=== PATIENT | female | born 1990 | race Caucasian/White ===

== ENCOUNTER 2017-02-22 16:24 | Outpatient (CLI) | payer MEDICAID, OTHER ==
[2017-02-23 11:49] LABS: BASOPHILS % (AUTO) 0.4 %; EOSINOPHILS # (AUTO) 0.1 10^3/uL (0.0-0.7); EOSINOPHILS % (AUTO) 1.2 %; HCT - HEMATOCRIT 39.2 % (37.0-47.0); LYMPHOCYTES # (AUTO) 3.1 10^3/uL (1.5-3.5); LYMPHOCYTES % (AUTO) 35.7 %; MEAN CORPUSCULAR HEMOGLOBIN 31.5 pg (27.0-31.0); MEAN CORPUSCULAR HGB CONC 33.2 g/dL (32.0-36.0); MEAN CORPUSCULAR VOLUME 95.1 fL (81.0-99.0); MEAN PLATELET VOLUME 8.3 fL (7.9-10.8); MONOCYTES # (AUTO) 0.5 10^3/uL (0.0-1.0); MONOCYTES % (AUTO) 5.8 %; NEUTROPHILS # (AUTO) 4.9 10^3/uL (1.5-6.6); NEUTROPHILS % (AUTO) 56.9 %; NUCLEATED RED BLOOD CELLS AUTO 0.1 /100WBC; RED BLOOD COUNT 4.13 10^6/uL (4.20-5.40); RED CELL DISTRIBUTION WIDTH 12.4 % (12.0-15.0); UNCORRECTED WHITE BLOOD COUNT 8.6 x10^3/uL; WHITE BLOOD COUNT 8.6 x10^3/uL (4.8-10.8)
[2017-02-23 12:42] LABS: CALCIUM 8.9 mg/dL (8.5-10.3); CREATININE 0.9 mg/dL (0.4-1.0); POTASSIUM 3.6 mmol/L (3.5-5.0)
[2017-02-25 22:31] LABS: TEST RESULT REPORT (())
== END 2017-02-22 16:25 | disposition home or self-care (01) ==
LOC: LAB.S 16:24
PROVIDERS: ATTEND Nurse Practitioner Family
DX: Z02.0 Encounter for examination for admission to educational institution (principal); Z13.1 Encounter for screening for diabetes mellitus; Z13.0 Encounter for screening for diseases of the blood and blood-forming organs and certain disorders involving the immune mechanism
CPT/HCPCS: 36415; 80048; 81599; 85025; 86317; 86735; 86762; 86765; 86787

== ENCOUNTER 2020-02-02 16:44 | Outpatient (CLI) | payer BC | END 2020-02-02 23:59 | disposition short-term general hospital (02) | LOC: EMS 16:44 | PROVIDERS: ATTEND Surgery | DX: S89.91XA Unspecified injury of right lower leg, initial encounter (principal); V80.010A Animal-rider injured by fall from or being thrown from horse in noncollision accident, initial encounter; Y93.52 Activity, horseback riding; Y92.838 Other recreation area as the place of occurrence of the external cause | CPT/HCPCS: A0425; A0433 ==

== ENCOUNTER 2022-02-27 08:00 | Outpatient (CLI) | payer BC, MEDICAID ==
[2022-02-27 08:08] LABS: BILIRUBIN,URINE NEGATIVE (NEGATIVE); GLUCOSE, URINE (UA) NEGATIVE (NEGATIVE); KETONES,URINE (UA) NEGATIVE (NEGATIVE); LEUKOCYTE ESTERASE, URINE NEGATIVE (NEGATIVE); NITRITE,URINE NEGATIVE (NEGATIVE); OCCULT BLOOD,URINE NEGATIVE (NEGATIVE); PROTEIN,URINE NEGATIVE (NEGATIVE); UROBILINOGEN,URINE 0.2 (NORMAL) E.U./dL (NORMAL)
[2022-02-27 08:37] LABS: CLARITY,URINE CLEAR (CLEAR)
[2022-02-27 08:40] LABS: BACTERIA,URINE None Seen /HPF (None Seen); RBC,URINE None Seen /HPF (0-5); SQUAMOUS EPITHELIAL CELL,UR NONE SEEN (<= Few); WBC,URINE 0-3 /HPF (0-5)
== END 2022-02-27 23:59 | disposition home or self-care (01) ==
LOC: LAB.WC 08:00
PROVIDERS: ATTEND Obstetrics & Gynecology
DX: Z32.01 Encounter for pregnancy test, result positive (principal)
CPT/HCPCS: 81001; 87086

== ENCOUNTER 2022-03-06 08:00 | Outpatient (CLI) | payer MEDICAID ==
[2022-03-07 00:11] LABS: CHLAMYDIA TRACHOMATIS DNA NEGATIVE (NEGATIVE); NEISSERIA GONORRHOEAE DNA NEGATIVE (NEGATIVE); TRICHOMONAS VAGINALIS DNA NEGATIVE (NEGATIVE)
== END 2022-03-06 23:59 | disposition home or self-care (01) ==
LOC: LAB 08:00
PROVIDERS: ATTEND Obstetrics & Gynecology
DX: Z11.3 Encounter for screening for infections with a predominantly sexual mode of transmission (principal)
CPT/HCPCS: 87491; 87591; 87661

== ENCOUNTER 2022-03-06 10:59 | Outpatient (CLI) | payer MEDICAID ==
[2022-03-06 11:14] LABS: BASOPHILS # (AUTO) 0.1 10^3/uL (0.0-0.1); BASOPHILS % (AUTO) 0.7 %; EOSINOPHILS # (AUTO) 0.1 10^3/uL (0.0-0.7); HCT - HEMATOCRIT 39.5 % (37.0-47.0); LYMPHOCYTES # (AUTO) 1.7 10^3/uL (1.5-3.5); LYMPHOCYTES % (AUTO) 23.2 %; MEAN CORPUSCULAR HEMOGLOBIN 32.4 pg (27.0-31.0); MEAN CORPUSCULAR HGB CONC 35.4 g/dL (32.0-36.0); MEAN CORPUSCULAR VOLUME 91.4 fL (81.0-99.0); MEAN PLATELET VOLUME 9.6 fL (7.9-10.8); MONOCYTES # (AUTO) 0.5 10^3/uL (0.0-1.0); MONOCYTES % (AUTO) 7.4 %; NEUTROPHILS # (AUTO) 4.9 10^3/uL (1.5-6.6); NEUTROPHILS % (AUTO) 67.4 %; PLT - PLATELET COUNT 182 10^3/uL (130-450); RED BLOOD COUNT 4.32 10^6/uL (4.20-5.40); WHITE BLOOD COUNT 7.3 x10^3/uL (4.8-10.8)
[2022-03-07 05:11] LABS: HBsAG SCREEN Negative (Negative); HCV AB <0.1 s/co ratio (0.0-0.9); HIV SCREEN 4TH GENERATION Non Reactive (Non Reactive)
[2022-03-07 06:11] LABS: RPR Non Reactive (Non Reactive)
[2022-03-07 08:09] LABS: VARICELLA-ZOSTER AB IGG <135 index (Immune >165)
== END 2022-03-06 11:00 | disposition home or self-care (01) ==
LOC: LAB 10:59
PROVIDERS: ATTEND Obstetrics & Gynecology
DX: Z36.89 Encounter for other specified antenatal screening (principal)
CPT/HCPCS: 36415; 85025; 86592; 86762; 86787; 86803; 86850; 86900; 86901; 87340; 87389

== ENCOUNTER 2022-06-02 15:46 | Outpatient (CLI) | payer MEDICAID ==
--- NOTE | 2022-06-02 17:54 | Ultrasound Report ---
PROCEDURE: OB Detailed Eval INDICATIONS: SUPERVISION OF OUTSIDE/PRIOR DATING DATA: Last menstrual period (LMP): 01/16/2022. LMP-based estimated date of delivery (TAIWO): 10/23/2022. First dating scan (date and location): 03/04/2022, [facility]. Estimated date of delivery (TAIWO) from first dating scan: 10/22/2022. TECHNIQUE: Real-time scanning was performed of the fetus, with image documentation and biometric measurements. COMPARISON: OB ultrasound dated 03/04/2022 FINDINGS: General: A single living intrauterine gestation is present. Presentation: Vertex Placenta: Placental position is fundal. There is a marginal placental previa which is 6 mm from the cervical os. Amniotic fluid index: 13.7 cm, 4.6% for gestational age. heart rate: 148 beats per minute. Maternal cervical canal: I.1 cm long; normal length is 2.5 cm or more. biometrics: Biparietal diameter: 5.32 cm, 22 weeks, 1 day Head circumference: 19.3 cm, 21 weeks, 4 days Abdominal circumference: 15.9 cm, 21 weeks, 0 days Femur length: Tree 0.37 cm, 20 weeks, 4 days Estimated gestational age from initial scan: 19 weeks, 5 days Composite gestational age from present scan: 21 weeks, 0 days Estimated weight and percentile: 388 g, 97% Measurement variability in biometric dating: +/- 10 days from 12-20 weeks gestation, +/- 2 weeks from 20-30 weeks gestation, +/- 3 weeks at 30 weeks gestation or later. Anatomic survey: Neuro: Ventricles are normal at less than 10 mm. Cisterna magna is normal at 3-11 mm. Cerebellum i s normal in size and morphology. Nuchal skin fold: Normal at less than 6 mm between 14 and 20 weeks gestational age. Face: Nose and lips, facial profile are normal. Spine: No evidence for spina bifida. Heart: 4-chambered heart is present, with normal ventricular outflow tracts. Diaphragm: Diaphragm is intact. Stomach: Left-sided stomach is present. Kidneys: No hydronephrosis. Normal is less than 5 mm in 2nd trimester, less than 7 mm in 3rd trimester. Cord: 3 vessel cord has orthotopic insertion. Bladder: Normal in size. Extremities: All 4 extremities are visualized. IMPRESSION: 1. Marginal placenta previa. Continued sonographic surveillance recommended. 2. Estimated weight percentile of 97%. Developing macrosomia cannot be excluded. 3. Profile was not visualized. No other sonographic anatomic abnormalities. Interval repeat gabi dy recommended to evaluate for profile. Reviewed by: Josette López MD on 06/02/2022 5:52 PM PDT Approved by: Josette López MD on 06/02/2022 5:52 PM PDT Station ID: [id number]
== END 2022-06-02 15:47 | disposition home or self-care (01) ==
LOC: DI 15:46
PROVIDERS: ATTEND Obstetrics & Gynecology
DX: O44.22 Partial placenta previa NOS or without hemorrhage, second trimester (principal); Z36.89 Encounter for other specified antenatal screening; Z3A.21 21 weeks gestation of pregnancy

== ENCOUNTER 2022-06-16 10:00 | Outpatient (CLI) | payer MEDICAID ==
--- NOTE | 2022-06-16 15:55 | Ultrasound Report ---
PROCEDURE: OB F/U or Repeat INDICATIONS: SUPERVISION OF OUTSIDE/PRIOR DATING DATA: Last menstrual period (LMP): 01/16/2022. LMP-based estimated date of delivery (TAIWO): 10/23/2022. First dating scan (date and location): 03/04/2022. Estimated date of delivery (TAIWO) from first dating scan: 10/22/2022. The below data below was generated using the ultrasound generated TAIWO of 10/22/2022 TECHNIQUE: Real-time scanning was performed of the fetus, with image documentation and biometric measurements. Endovaginal scanning: Not performed COMPARISON: None. FINDINGS: General: A single living intrauterine gestation is present. Presentation: Vertex Placenta: Placental position is fundal, without previa. Cord insertion is normal. Amniotic fluid index: Posterior cm, normal for gestational age. heart rate: 143 beats per minute. facial profile: Normal. Maternal cervical canal: 5 cm long; normal length is 2.5 cm or more. IMPRESSION: Single living intrauterine gestation with normal LESLI and normal orthotopic cord insertion. facial profile appears normal. Reviewed by: Ceferino Grace MD on 06/16/2022 3:54 PM PDT Approved by: Ceferino Grace MD on 06/16/2022 3:54 PM PDT Station ID: [id number]
== END 2022-06-16 10:01 | disposition home or self-care (01) ==
LOC: DI 10:00
PROVIDERS: ATTEND Obstetrics & Gynecology
DX: O44.12 Complete placenta previa with hemorrhage, second trimester (principal); Z3A.00 Weeks of gestation of pregnancy not specified

== ENCOUNTER 2022-07-16 14:04 | Outpatient (CLI) | payer MEDICAID ==
--- NOTE | 2022-07-16 18:37 | Ultrasound Report ---
PROCEDURE: OB F/U or Repeat INDICATIONS: Placenta previa OUTSIDE/PRIOR DATING DATA: Last menstrual period (LMP): 01/16/2022. LMP-based estimated date of delivery (TAIWO): 10/23/2022. First dating scan (date and location): 03/04/2022. Estimated date of delivery (TAIWO) from first dating scan: 10/22/2022. TECHNIQUE: Real-time scanning was performed of the fetus, with image documentation and biometric measurements. Endovaginal scanning: Not performed COMPARISON: None. FINDINGS: General: A single living intrauterine gestation is present. Presentation: Vertex Placenta: Placental position is fundal, without previa. Cord insertion is normal. Amniotic fluid index: 16.9 cm, normal for gestational age. heart rate: 137 beats per minute. facial profile: Normal. Maternal cervical canal: 5.3 cm long; normal length is 2.5 cm or more. BPD: 7.7 cm, 31 week 0 day HC: 27.8 cm, 30 week 3 day Before meals: 22.7 cm, 27 week 1 day FL: 5.0 cm, 26 week 6 day EGA by initial ultrasound: 26 week 0 day EGA by today's ultrasound: 28 week 3 day EFW: 1095 g, 94th percentile IMPRESSION: Single live intrauterine consistent with a 20 week 3 day gestation by current ultrasound No evidence of placenta previa. Reviewed by: Brando Dee MD on 07/16/2022 5:35 PM [place] Approved by: Brando Dee MD on 07/16/2022 5:35 PM [place] Station ID: [id number]
== END 2022-07-16 14:05 | disposition home or self-care (01) ==
LOC: DI 14:04
PROVIDERS: ATTEND Obstetrics & Gynecology
DX: O44.12 Complete placenta previa with hemorrhage, second trimester (principal); Z3A.20 20 weeks gestation of pregnancy

== ENCOUNTER 2022-07-24 15:49 | Outpatient (CLI) | payer MEDICAID | END 2022-07-24 15:50 | disposition home or self-care (01) | LOC: LAB 15:49 | PROVIDERS: ATTEND Obstetrics & Gynecology | DX: O09.92 Supervision of high risk pregnancy, unspecified, second trimester (principal); Z36.89 Encounter for other specified antenatal screening | CPT/HCPCS: 36415; 82950 ==

== ENCOUNTER 2022-09-09 18:36 | Outpatient (CLI) | payer MEDICAID ==
[2022-09-09 19:00] LABS: HCT - HEMATOCRIT 36.1 % (37.0-47.0); HGB - HEMOGLOBIN 12.1 g/dL (12.0-16.0); MEAN CORPUSCULAR HEMOGLOBIN 31.5 pg (27.0-31.0); MEAN CORPUSCULAR HGB CONC 33.5 g/dL (32.0-36.0); MEAN PLATELET VOLUME 9.5 fL (7.9-10.8); RED BLOOD COUNT 3.84 10^6/uL (4.20-5.40); RED CELL DISTRIBUTION WIDTH 11.8 % (12.0-15.0); WHITE BLOOD COUNT 14.2 x10^3/uL (4.8-10.8)
[2022-09-09 19:01] LABS: CREATININE,URINE 62.9 mg/dL; PROTEIN/CREATININE RATIO,URINE 0.1 (<=0.2)
[2022-09-09 19:02] LABS: ALBUMIN 3.5 g/dL (3.2-5.5); ALBUMIN/GLOBULIN RATIO 0.9 (1.0-2.2); BILIRUBIN,TOTAL 0.5 mg/dL (0.2-1.0); CALCIUM 8.9 mg/dL (8.5-10.3); CREATININE 0.7 mg/dL (0.4-1.0); POTASSIUM 3.5 mmol/L (3.5-5.0); TOTAL PROTEIN 7.5 g/dL (6.7-8.2)
== END 2022-09-09 18:37 | disposition home or self-care (01) ==
LOC: LAB 18:36
PROVIDERS: ATTEND Obstetrics & Gynecology
DX: R03.0 Elevated blood-pressure reading, without diagnosis of hypertension (principal)
CPT/HCPCS: 36415; 80053; 82570; 84156; 85027

== ENCOUNTER 2022-09-23 08:00 | Outpatient (CLI) | payer MEDICAID | END 2022-09-23 23:59 | disposition home or self-care (01) | LOC: LAB.WC 08:00 | PROVIDERS: ATTEND Obstetrics & Gynecology | DX: O09.93 Supervision of high risk pregnancy, unspecified, third trimester (principal) | CPT/HCPCS: 87797 ==

== ENCOUNTER 2022-09-23 09:54 | Outpatient (CLI) | payer MEDICAID ==
[2022-09-23 10:11] VITALS: BP 127/79
--- NOTE | 2022-09-23 11:43 | PROVIDER PROGRESS NOTE ---
- HPI Chief Complaint: Hypertension/PIH Current : Vital Signs Temperature 99.1 F 09/23/22 10:10 Heart Rate 91 09/23/22 10:10 Respiratory Rate 16 09/23/22 10:10 Blood Pressure 127/79 09/23/22 10:10 O2 Saturation 99 09/23/22 10:10 Temperature 99.1 F 09/23/22 10:19 Heart Rate 91 09/23/22 10:10 Respiratory Rate 16 09/23/22 10:10 Blood Pressure 127/79 09/23/22 10:10 O2 Saturation 99 09/23/22 10:10 If not protocol: Oxygen Flow, liters/minute - Exam Pelvic examination revealed 1 cm dilated cervix with the 0 effacement and -3 station and vertex presentation - Procedures OB Procedure Performed: NST Diagnosis/Indication for NST: Other NST Procedure: Reactive nonstress test - Plan Plan: I spoke to Dr. Noble Fair at [facility] in [place] and he agreed and accepted the transfer
--- NOTE | 2022-09-23 11:56 | DISCHARGE SUMMARY ---
"Discharge Summary Admit Date: 09/23/22 Discharge Date: 09/23/22 Discharging Provider: Primary Care Provider: Condition at Discharge: Stable - DIAGNOSES Admission Diagnoses: IUP 35+ PPROM PIH Discharge Diagnoses with Status of Each Condition: the same Condition on discharge: Stable - HPI History of Present Illness: This 32-year-old primigravida EDC October 23, 2022 was a sent from the clinic for nonstress test further -induced hypertension and prolonged rupture of membrane. Her nonstress test was reactive and her blood pressure become stable but she had a definite rupture of membrane since Wednesday. Because of a gestational age which is a less than 36 weeks with the prolonged rupture membrane we do not feel comfortable to take care however her delivery and aftercare therefore we decided to transfer to [facility]. - CONSULTS | PROCEDURES Consultations: Dr. Noble Fair - HOSPITAL COURSE Hospital Course: She remained stable and her vital signs normal - ALLERGIES Allergies/Adverse Reactions: Allergies Allergy/AdvReac Type Severity Reaction Status Date / Time No Known Drug Allergies Allergy Verified 09/23/22 10:35 - FOLLOW UP Follow Up: We will transfer her to the [facility] in [place]. She was given prophylactic antibiotics and betamethasone"
[2022-09-23] MEDS ORDERED: AMPICILLIN 2 GM in SODIUM CHLORIDE 0.9% MINIBAG 100 ML IV ONE (12:00)
--- NOTE | 2022-09-23 12:06 | Discharge Plan ---
Discharge Plan Problem Reviewed?: Yes Disposition: 02 Transfer Acute Care Hosp Condition: Stable Diet: Regular No Smoking: If you smoke, Please STOP! Call for help. Follow-up with: Will Akhtar MD [Primary Care Provider] - 6 Weeks (She will be transferred to the [facility] today and she will require to have 6 weeks follow-up checkup here)
--- NOTE | 2022-09-23 12:12 | PROCEDURE REPORT ---
- HPI Diagnosis/Indication for NST: Pre- Hypertension Vital Signs Temperature 99.1 F 09/23/22 10:10 Heart Rate 91 09/23/22 10:10 Respiratory Rate 16 09/23/22 10:10 Blood Pressure 127/79 09/23/22 10:10 O2 Saturation 99 09/23/22 10:10 Temperature 99.1 F 09/23/22 10:19 Heart Rate 91 09/23/22 10:10 Respiratory Rate 16 09/23/22 10:10 Blood Pressure 127/79 09/23/22 10:10 O2 Saturation 99 09/23/22 10:10 If not protocol: Oxygen Flow, liters/minute - NST Procedure Baseline\: 135 moderate beat to beat variability present acceleration absent deceleration cat: 1 FHT - Results and Plan Findings/Impression: Reactive Plan: Will be transferred to [place] due to gestational age and prolonged ROM
[2022-09-23] MEDS ORDERED: BETAMETHASONE 30 MG/5 ML VIAL IM ONE (12:15)
[2022-09-23] MEDS: SODIUM CHLORIDE FLUSH 0.9% 10 ML SYRINGE IVP SCH ×2 (12:27→12:40)
[2022-09-23 12:35] LABS: BASOPHILS # (AUTO) 0.1 10^3/uL (0.0-0.1); BASOPHILS % (AUTO) 0.6 %; EOSINOPHILS % (AUTO) 0.2 %; HCT - HEMATOCRIT 33.8 % (37.0-47.0); HGB - HEMOGLOBIN 11.4 g/dL (12.0-16.0); LYMPHOCYTES # (AUTO) 0.6 10^3/uL (1.5-3.5); LYMPHOCYTES % (AUTO) 7.2 %; MEAN CORPUSCULAR HEMOGLOBIN 31.1 pg (27.0-31.0); MEAN CORPUSCULAR HGB CONC 33.7 g/dL (32.0-36.0); MEAN CORPUSCULAR VOLUME 92.3 fL (81.0-99.0); MEAN PLATELET VOLUME 9.9 fL (7.9-10.8); MONOCYTES # (AUTO) 0.5 10^3/uL (0.0-1.0); MONOCYTES % (AUTO) 6.3 %; NEUTROPHILS # (AUTO) 7.1 10^3/uL (1.5-6.6); NEUTROPHILS % (AUTO) 85.2 %; PLT - PLATELET COUNT 147 10^3/uL (130-450); RED BLOOD COUNT 3.66 10^6/uL (4.20-5.40); RED CELL DISTRIBUTION WIDTH 11.8 % (12.0-15.0); WHITE BLOOD COUNT 8.4 x10^3/uL (4.8-10.8)
[2022-09-23 12:50] LABS: ALBUMIN 2.9 g/dL (3.2-5.5); ALBUMIN/GLOBULIN RATIO 0.8 (1.0-2.2); BILIRUBIN,TOTAL 0.5 mg/dL (0.2-1.0); CALCIUM 8.3 mg/dL (8.5-10.3); CREATININE 0.8 mg/dL (0.4-1.0); POTASSIUM 3.7 mmol/L (3.5-5.0); TOTAL PROTEIN 6.5 g/dL (6.7-8.2)
== END 2022-09-23 13:52 | disposition short-term general hospital (02) ==
LOC: WFO 09:54 → FBP 09:56 → WFO 13:52
PROVIDERS: ATTEND Obstetrics & Gynecology
DX: O13.3 Gestational [pregnancy-induced] hypertension without significant proteinuria, third trimester (principal); O42.913 Preterm premature rupture of membranes, unspecified as to length of time between rupture and onset of labor, third trimester; O09.93 Supervision of high risk pregnancy, unspecified, third trimester; Z3A.35 35 weeks gestation of pregnancy
CPT/HCPCS: 59025; 80053; 84112; 85025; 96365; 96372; 99215

== ENCOUNTER 2022-09-23 10:06 | Outpatient (CLI) | payer MEDICAID ==
[2022-09-23 10:26] LABS: RUPTURE OF MEMBRANES PLUS POSITIVE (NEGATIVE)
== END 2022-09-23 10:07 | disposition home or self-care (01) ==
LOC: LAB.WC 10:06
PROVIDERS: ATTEND Obstetrics & Gynecology
DX: O09.93 Supervision of high risk pregnancy, unspecified, third trimester (principal)
CPT/HCPCS: 84112

== ENCOUNTER 2024-01-13 08:00 | Outpatient (CLI) | payer MEDICAID ==
[2024-01-13 18:57] LABS: BILIRUBIN,URINE NEGATIVE (NEGATIVE); GLUCOSE, URINE (UA) NEGATIVE (NEGATIVE); KETONES,URINE (UA) NEGATIVE (NEGATIVE); LEUKOCYTE ESTERASE, URINE NEGATIVE (NEGATIVE); NITRITE,URINE NEGATIVE (NEGATIVE); OCCULT BLOOD,URINE NEGATIVE (NEGATIVE); PROTEIN,URINE NEGATIVE (NEGATIVE); UROBILINOGEN,URINE 0.2 (NORMAL) E.U./dL (NORMAL)
[2024-01-13 19:23] LABS: BACTERIA,URINE Moderate /HPF (None Seen); CLARITY,URINE CLEAR (CLEAR); RBC,URINE None Seen /HPF (0-5); SQUAMOUS EPITHELIAL CELL,UR MOD Squamous (<= Few)
== END 2024-01-13 23:59 | disposition home or self-care (01) ==
LOC: LAB.WC 08:00
PROVIDERS: ATTEND Nurse Practitioner
DX: Z34.90 Encounter for supervision of normal pregnancy, unspecified, unspecified trimester (principal)
CPT/HCPCS: 81001; 87086

== ENCOUNTER 2024-01-17 12:36 | Outpatient (CLI) | payer MEDICAID ==
[2024-01-17 15:07] LABS: BASOPHILS # (AUTO) 0.1 10^3/uL (0.0-0.1); BASOPHILS % (AUTO) 0.6 %; EOSINOPHILS # (AUTO) 0.1 10^3/uL (0.0-0.7); EOSINOPHILS % (AUTO) 0.9 %; HCT - HEMATOCRIT 39.9 % (37.0-47.0); HGB - HEMOGLOBIN 13.4 g/dL (12.0-16.0); LYMPHOCYTES # (AUTO) 2.4 10^3/uL (1.5-3.5); LYMPHOCYTES % (AUTO) 28.5 %; MEAN CORPUSCULAR HEMOGLOBIN 30.5 pg (27.0-31.0); MEAN CORPUSCULAR HGB CONC 33.6 g/dL (32.0-36.0); MEAN CORPUSCULAR VOLUME 90.9 fL (81.0-99.0); MEAN PLATELET VOLUME 10.1 fL (7.9-10.8); MONOCYTES # (AUTO) 0.5 10^3/uL (0.0-1.0); MONOCYTES % (AUTO) 5.3 %; NEUTROPHILS # (AUTO) 5.5 10^3/uL (1.5-6.6); NEUTROPHILS % (AUTO) 64.5 %; PLT - PLATELET COUNT 244 10^3/uL (130-450); RED BLOOD COUNT 4.39 10^6/uL (4.20-5.40); RED CELL DISTRIBUTION WIDTH 12.8 % (12.0-15.0); WHITE BLOOD COUNT 8.5 x10^3/uL (4.8-10.8)
[2024-01-18 06:15] LABS: HIV SCREEN 4TH GENERATION Non Reactive (Non Reactive)
[2024-01-18 08:19] LABS: HBsAG SCREEN Negative (Negative); RPR Non Reactive (Non Reactive)
[2024-01-18 12:10] LABS: VARICELLA-ZOSTER AB IGG <135 index (Immune >165)
[2024-01-19 00:08] LABS: HCV AB Non Reactive (Non Reactive)
== END 2024-01-17 12:37 | disposition home or self-care (01) ==
LOC: LAB.S 12:36
PROVIDERS: ATTEND Nurse Practitioner
DX: Z34.90 Encounter for supervision of normal pregnancy, unspecified, unspecified trimester (principal)
CPT/HCPCS: 36415; 85025; 86592; 86762; 86787; 86803; 86850; 86900; 86901; 87340; 87389

== ENCOUNTER 2024-01-25 19:34 | Outpatient (CLI) | payer MEDICAID ==
--- NOTE | 2024-01-26 01:07 | Ultrasound Report ---
PROCEDURE: OB 1st Trimester w/TV INDICATIONS: POSITIVE TEST OUTSIDE/PRIOR DATING DATA: Last menstrual period (LMP): 12/02/2023. LMP-based estimated date of delivery (TAIWO): 09/07/2024. First dating scan (date and location): 01/25/2024. Estimated date of delivery (TAIWO) from first dating scan: 09/08/2024. TECHNIQUE: Real-time scanning was performed of the fetus and maternal pelvic organs, with image documentation. Endovaginal scanning was also performed to better visualize the fetus and maternal ovaries. COMPARISON: None. FINDINGS: Intrauterine gestational sac present. Embryo: [place]-rump length 1.4 cm corresponds with a 7 week 4 day gestation Heart rate: 155 bpm. 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 Intrauterine noted in the right horn. Measurement variability in dating: +/- 4 weeks by LMP, +/- 7 days by mean sac diameter (use before 6 weeks gestation if crown-rump length not able to be measured), +/- 5 days by crown-rump length (6-12 weeks gestation). Maternal organs: Ovaries show right corpus luteum cyst IMPRESSION: Single live intrauterine consistent with 7 week 4 day gestation. Bicornuate or septate uterus. Gestational sac is in the right cornu Reviewed by: Brando Dee MD on 01/26/2024 12:05 AM RUFINO Approved by: Brando Dee MD on 01/26/2024 12:05 AM RUFINO Station ID: [id number]
== END 2024-01-25 19:35 | disposition home or self-care (01) ==
LOC: DI 19:34
PROVIDERS: ATTEND Nurse Practitioner
DX: Z34.91 Encounter for supervision of normal pregnancy, unspecified, first trimester (principal)

== ENCOUNTER 2024-02-03 08:00 | Outpatient (CLI) | payer MEDICAID ==
[2024-02-03 23:16] LABS: CHLAMYDIA TRACHOMATIS DNA NEGATIVE (NEGATIVE); NEISSERIA GONORRHOEAE DNA NEGATIVE (NEGATIVE); TRICHOMONAS VAGINALIS DNA NEGATIVE (NEGATIVE)
== END 2024-02-03 23:59 | disposition home or self-care (01) ==
LOC: LAB.WC 08:00
PROVIDERS: ATTEND Obstetrics & Gynecology
DX: Z11.3 Encounter for screening for infections with a predominantly sexual mode of transmission (principal)
CPT/HCPCS: 87491; 87591; 87661

== ENCOUNTER 2024-02-22 18:32 | Outpatient (CLI) | payer MEDICAID | END 2024-02-22 18:33 | disposition home or self-care (01) | LOC: LAB 18:32 | PROVIDERS: ATTEND Obstetrics & Gynecology | DX: O09.891 Supervision of other high risk pregnancies, first trimester (principal) ==

== ENCOUNTER 2024-02-23 18:32 | Outpatient (CLI) | payer MEDICAID | END 2024-02-23 18:33 | disposition home or self-care (01) | LOC: LAB 18:32 | PROVIDERS: ATTEND Obstetrics & Gynecology | DX: O09.891 Supervision of other high risk pregnancies, first trimester (principal) ==

== ENCOUNTER 2024-03-29 10:45 | Outpatient (CLI) | payer MEDICAID ==
[2024-03-29 11:19] LABS: ALBUMIN 4.1 g/dL (3.2-5.5); ALBUMIN/GLOBULIN RATIO 1.5 (1.0-2.2); BILIRUBIN,TOTAL 0.4 mg/dL (0.2-1.0); CALCIUM 9.5 mg/dL (8.5-10.3); CREATININE 0.6 mg/dL (0.6-1.3); TOTAL PROTEIN 6.9 g/dL (6.4-8.9)
[2024-03-29 11:20] LABS: CREATININE,URINE 52.8 mg/dL; PROTEIN/CREATININE RATIO,URINE 0.1 (<=0.2)
[2024-03-29 13:04] LABS: ESTIMATED AVERAGE GLUCOSE 105 mg/dL (70-100); HEMOGLOBIN A1c% 5.3 % (4.27-6.07)
== END 2024-03-29 10:46 | disposition home or self-care (01) ==
LOC: LAB 10:45
PROVIDERS: ATTEND Obstetrics & Gynecology
DX: O09.892 Supervision of other high risk pregnancies, second trimester (principal)
CPT/HCPCS: 36415; 80053; 82105; 82570; 83036; 84156

== ENCOUNTER 2024-04-22 11:44 | Outpatient (CLI) | payer MEDICAID ==
[2024-04-22 12:12] VITALS: BP 125/79
[2024-04-22 13:03] LABS: BILIRUBIN,URINE NEGATIVE (NEGATIVE); GLUCOSE, URINE (UA) NEGATIVE (NEGATIVE); KETONES,URINE (UA) NEGATIVE (NEGATIVE); LEUKOCYTE ESTERASE, URINE NEGATIVE (NEGATIVE); NITRITE,URINE NEGATIVE (NEGATIVE); OCCULT BLOOD,URINE NEGATIVE (NEGATIVE); PROTEIN,URINE NEGATIVE (NEGATIVE); UROBILINOGEN,URINE 0.2 (NORMAL) E.U./dL (NORMAL)
[2024-04-22 13:11] LABS: BACTERIA,URINE None Seen /HPF (None Seen); CLARITY,URINE CLEAR (CLEAR); RBC,URINE None Seen /HPF (0-5); SQUAMOUS EPITHELIAL CELL,UR NONE SEEN (<= Few); WBC,URINE 0-3 /HPF (0-5)
[2024-04-22 13:22] LABS: RUPTURE OF MEMBRANES PLUS NEGATIVE (NEGATIVE)
[2024-04-22 15:33] LABS: CHLAMYDIA TRACHOMATIS DNA NEGATIVE (NEGATIVE); NEISSERIA GONORRHOEAE DNA NEGATIVE (NEGATIVE)
[2024-04-22 16:42] LABS: BACTERIAL VAGINOSIS DNA NEGATIVE (NEGATIVE); CANDIDA GLABRATA DNA NEGATIVE (NEGATIVE); CANDIDA GROUP DNA NEGATIVE (NEGATIVE); CANDIDA KRUSEI DNA NEGATIVE (NEGATIVE); TRICHOMONAS VAGINALIS DNA NEGATIVE (NEGATIVE)
--- NOTE | 2024-04-22 21:59 | PROVIDER PROGRESS NOTE ---
- HPI Chief Complaint: Other (cramping, discharge and just not feeling right.) Current : 34 yo at 20 weeks 2 d ga in current . First complicated by PROM at 34 weeks and delivery at 35 weeks. Patient was worried when she was having some cramping, increased discharge, and just felt not right. She called and talked to Dr. Akhtar and he encouraged her to come in and get checked. she denies n/v. no dysuria. no concerns about STDs. says her discharge is thick and snotty mostly but sometimes is more watery. No bleeding. no fever. Low abdominal cramping across pubic area and into her back last couple days, worse today. Good movement. so far uncomplicated. Anatomy scan scheduled for 05/02. Vital Signs Temperature 98.4 F 04/22/24 12:06 Heart Rate 81 04/22/24 12:06 Respiratory Rate 16 04/22/24 12:06 Blood Pressure 125/79 04/22/24 12:06 - Exam She is in no distress. no contractions on monitor. FHT normal abdomen is soft. fundus not tender. no rebound or guarding or significant point tenderness. no significant discharge coming from vaginal opening. - Procedures NST Procedure: not appropriate at this GA Findings: Urine normal, low specific gravity. ROM + negative. vaginitis swab, STD swab all negative. - Plan Plan: patient does not seem to have infection, rupture membranes, or labor. reassured. recommend belly band. call if more concerns and reassured that coming it to get checked is perfectly OK. nothing bad. Discharge home. has visit with Dr. Akhtar on Wednesday. US the following week. Did say that she has not been taking her ASA regularly. Encouraged to take it every day. Can help with labor prevention as well as preeclampsia. Strategies for helping her remember this discussed.
== END 2024-04-22 13:45 | disposition home or self-care (01) ==
LOC: WFO 11:44 → FBP 11:47 → WFO 13:45
PROVIDERS: ATTEND Obstetrics & Gynecology
DX: O09.212 Supervision of pregnancy with history of pre-term labor, second trimester (principal); Z3A.20 20 weeks gestation of pregnancy; O99.891 Other specified diseases and conditions complicating pregnancy; R10.2 Pelvic and perineal pain
CPT/HCPCS: 81001; 81514; 84112; 87086; 87491; 87591; 87661; 99215

== ENCOUNTER 2024-05-02 18:52 | Outpatient (CLI) | payer MEDICAID ==
--- NOTE | 2024-05-05 13:37 | Ultrasound Report ---
PROCEDURE: OB Anatomy Scan INDICATIONS: SUPERVISION OF OUTSIDE/PRIOR DATING DATA: Last menstrual period (LMP): 12/02/2023. LMP-based estimated date of delivery (TAIWO): 09/07/2024. First dating scan (date and location): 01/25/2024. Estimated date of delivery (TAIWO) from first dating scan: 09/08/2024. The below data below was generated using the working TAIWO of 09/07/2024 TECHNIQUE: Ultrasound of the gravid uterus was performed and recorded. COMPARISON: None. FINDINGS: General: A single live intrauterine gestation is present. Presentation: Vertex Placenta: Placental position is anterior without previa. Amniotic fluid index: 14.9 cm, 54 percentile for gestational age. heart rate: 143 beats per minute. Maternal cervical canal: 5.4 cm long; normal length is 2.5 cm or more. biometrics: Biparietal diameter: 5.5 cm, 23 week 0 day, 90 percentile Head circumference: 20.1 cm, 22 week 2 day, 62 percentile Abdominal circumference: 17.6 cm, 22 week 4 day, 69 percentile Femur length: 3.6 cm, 21 week 5 day, 39 percentile Estimated gestational age by working dates: 21 week 5 day Composite gestational age by current ultrasound: 22 week 2 day Estimated weight and percentile: 485 g, 70% Measurement variability in biometric dating: +/- 10 days from 12-20 weeks gestation, +/- 2 weeks from 20-30 weeks gestation, +/- 3 weeks at 30 weeks gestation or more. Anatomic survey: Neuro: Ventricles are non-dilated at less than 10 mm. Cisterna magna is normal at 3-11 mm. Cerebel lum is normal in size and morphology. Nuchal skin fold: Normal at less than 6 mm between 14-20 weeks gestational age. Face: Nose and lips, facial profile are normal. Spine: No evidence for spina bifida. Heart: 4-chambered heart is present, with normal ventricular outflow tracts. Diaphragm: Diaphragm is intact. Stomach: Left-sided stomach is present. Kidneys: No hydronephrosis. Normal is less than 5 mm in 2nd trimester, less than 7 mm in 3rd trimester. Cord: 3-vessel cord has orthotopic insertion. Bladder: Normal in size. Extremities: All 4 extremities identified. Other: Not applicable. IMPRESSION: Single live intrauterine consistent with 22 week 2 day gestation by current ultrasound Normal anatomic survey Reviewed by: Brando Dee MD on 05/05/2024 12:36 PM RUFINO Approved by: Brando Dee MD on 05/05/2024 12:36 PM RUFINO Station ID: [id number]
== END 2024-05-02 18:53 | disposition home or self-care (01) ==
LOC: DI 18:52
PROVIDERS: ATTEND Obstetrics & Gynecology
DX: O09.892 Supervision of other high risk pregnancies, second trimester (principal); Z3A.22 22 weeks gestation of pregnancy